=== PATIENT | male | born 1985 | race Caucasian/White ===

== ENCOUNTER 2016-12-20 11:45 | Emergency (ER) | payer OTHER ==
[2016-12-20 12:07] VITALS: BP 120/66; PULSE 57; RESP 15; TEMP 98
--- NOTE | 2016-12-20 12:16 | ED ---
ENT HPI - General Chief complaint: Dental/Oral Stated complaint: dental pain Time Seen by Provider: 12/20/16 12:09 Source: patient, RN notes reviewed Mode of arrival: ambulatory Limitations: no limitations - History of Present Illness Initial comments: 31-year-old male presents to the emergency department with a chief complaint of left-sided dental pain. Patient has a long history of dental issues. Patient does not regularly see the dentist. Patient states he's had pain and swelling to the left side of his mouth for the past few days. Patient denies any pain into the neck. Patient denies any difficulty opening closing her mouth. Patient denies any fever chills with this. Patient states she was concerned due to his continued pain so he thought that he should be evaluated.Patient denies any recent fever, chills, shortness of breath, chest pain, back pain, abdominal pain, nausea vomiting, numbness or tingling, dysuria or hematuria, constipation or diarrhea, headaches or visual changes, or any other current symptoms. - Related Data Previous Rx's Medication Instructions Recorded Ibuprofen [Motrin] 800 mg PO Q6HR PRN #20 tab 12/20/16 Penicillin V Potassium [Pen Vee K] 500 mg PO TID #40 tab 12/20/16 Allergies Allergy/AdvReac Type Severity Reaction Status Date / Time acetaminophen Allergy Swelling Verified 12/20/16 12:08 [From Tylenol-Codeine #3] codeine Allergy Swelling Verified 12/20/16 12:08 [From Tylenol-Codeine #3] Review of Systems ROS Statement: Those systems with pertinent positive or pertinent negative responses have been documented in the HPI. ROS Other: All systems not noted in ROS Statement are negative. Past Medical History Past Medical History: No Reported History History of Any Multi-Drug Resistant Organisms: None Reported Additional Past Surgical History / Comment(s): jaw Past Psychological History: No Psychological Hx Reported Smoking Status: Current every day smoker Past Alcohol Use History: None Reported Past Drug Use History: Marijuana General Exam Limitations: no limitations General appearance: alert, in no apparent distress Head exam: Present: atraumatic, normocephalic, normal inspection Eye exam: Present: normal appearance, PERRL, EOMI. Absent: scleral icterus, conjunctival injection, periorbital swelling Expanded Ear exam: Present: normal external inspection Mouth exam: Present: normal external inspection Teeth exam: Present: dental caries (Diffuse), dental tenderness # (Diffusely left side). Absent: gingival enlargement Throat exam: normal inspection, tonsillar erythema Neck exam: Present: normal inspection. Absent: tenderness, meningismus, lymphadenopathy Respiratory exam: Present: normal lung sounds bilaterally. Absent: respiratory distress, wheezes, rales, rhonchi, stridor Cardiovascular Exam: Present: regular rate, normal rhythm, normal heart sounds. Absent: systolic murmur, diastolic murmur, rubs, gallop, clicks Neurological exam: Present: alert, oriented X3 Psychiatric exam: Present: normal affect, normal mood Skin exam: Present: warm, dry, intact, normal color. Absent: rash Course Vital Signs 12/20/16 12:04 Temperature 98.0 F Pulse Rate 57 L Respiratory 15 Rate Blood Pressure 120/66 O2 Sat by Pulse 98 Oximetry Medical Decision Making - Medical Decision Making 31-year-old male presents to the emergency Department chief complaint of left- sided dental pain. At this time the patient will be started on antibiotics. We did give him information for follow-up with the dentist. We discussed return parameters all patient's questions. He stated he understood the plan. They will be discharged home. Disposition Clinical Impression: Dental caries Disposition: HOME SELF-CARE Condition: Stable Instructions: Dental Caries (ED) Additional Instructions: Please use medication as discussed. Please follow up with family doctor if symptoms have not improved over the next two days. Please return to the emergency room if your symptoms increase or worsen or for any other concerns. [facility] [id number] [place] [address] [phone] (existing clients only) For new clients: [phone] 1st consult: $50 (includes Xrays) Usually 30% less then private dentist for visits after. [employer] [facility] [employer] Have to pay $50 for Xrays anmd rest is covered. [phone] Prescriptions: Ibuprofen [Motrin] 800 mg PO Q6HR PRN #20 tab PRN Reason: Pain Penicillin V Potassium [Pen Vee K] 500 mg PO TID #40 tab Referrals: None,Stated [Primary Care Provider] - 1-2 days Alexey Kelly MD [STAFF PHYSICIAN] - 1-2 days Time of Disposition: 12:16
== END 2016-12-20 12:50 | disposition home or self-care (01) ==
LOC: EC 11:45
DX: K02.9 Dental caries, unspecified (principal); F17.200 Nicotine dependence, unspecified, uncomplicated; Z88.6 Allergy status to analgesic agent; Z88.5 Allergy status to narcotic agent
CPT/HCPCS: 99282

== ENCOUNTER 2019-10-31 14:27 | Emergency (ER) | payer OTHER ==
[2019-10-31 14:30] VITALS: BP 142/89; PULSE 74; RESP 16; TEMP 98.1
--- NOTE | 2019-10-31 15:10 | ED ---
General Adult HPI - General Chief complaint: Upper Respiratory Infection Stated complaint: nose congestion/fever Time Seen by Provider: 10/31/19 14:48 Source: patient, RN notes reviewed Mode of arrival: ambulatory Limitations: no limitations - History of Present Illness Initial comments: 34-year-old male presents to the emergency determine for a chief complaint of watery eyes. Patient states that for the past 5 days he has been sick. States he has had congestion and mild cough. Patient states that the cough resolved however he is still congested and now his eyes have been watery since yesterday. Patient denies visual changes or eye pain. Denies getting any foreign substance in his eyes. Denies any injury to the eyes. Patient denies purulent drainage or otherwise crusting shut. Patient denies fevers. Denies domestic or foreign travel. Patient has no other complaints at this time including shortness of breath, chest pain, abdominal pain, nausea or vomiting, headache, or visual changes. - Related Data Previous Rx's Medication Instructions Recorded Ibuprofen [Motrin] 800 mg PO Q6HR PRN #20 tab 12/20/16 Penicillin V Potassium [Pen Vee K] 500 mg PO TID #40 tab 12/20/16 Loratadine [Claritin] 10 mg PO DAILY #20 tab 10/31/19 Polymyxin B-Trimeth Sulf Ophth 1 drops BOTH EYES Q6H 7 Days #1 10/31/19 [Polytrim Opthalmic] bottle Allergies Allergy/AdvReac Type Severity Reaction Status Date / Time acetaminophen Allergy Swelling Verified 10/31/19 14:30 [From Tylenol-Codeine #3] codeine Allergy Swelling Verified 10/31/19 14:30 [From Tylenol-Codeine #3] Review of Systems ROS Statement: Those systems with pertinent positive or pertinent negative responses have been documented in the HPI. ROS Other: All systems not noted in ROS Statement are negative. Past Medical History Past Medical History: No Reported History History of Any Multi-Drug Resistant Organisms: None Reported Additional Past Surgical History / Comment(s): jaw Past Psychological History: No Psychological Hx Reported Smoking Status: Current every day smoker Past Alcohol Use History: None Reported Past Drug Use History: Marijuana General Exam Limitations: no limitations General appearance: alert, in no apparent distress Head exam: Present: atraumatic, normocephalic, normal inspection Eye exam: Present: normal appearance, PERRL, EOMI. Absent: scleral icterus, conjunctival injection (Non-erythematous, no purulent drainage. Patient does have watery serous drainage bilaterally), periorbital swelling ENT exam: Present: normal exam, normal oropharynx, mucous membranes moist, TM's normal bilaterally, normal external ear exam Neck exam: Present: normal inspection, full ROM. Absent: tenderness, meningismus, lymphadenopathy Respiratory exam: Present: normal lung sounds bilaterally. Absent: respiratory distress, wheezes, rales, rhonchi, stridor Cardiovascular Exam: Present: regular rate, normal rhythm, normal heart sounds. Absent: systolic murmur, diastolic murmur, rubs, gallop, clicks Course Vital Signs 10/31/19 14:28 Temperature 98.1 F Pulse Rate 74 Respiratory 16 Rate Blood Pressure 142/89 O2 Sat by Pulse 100 Oximetry Medical Decision Making - Medical Decision Making vital stable. Patient afebrile. Well-appearing, sitting up in exam bed. Nontoxic. Physical exam unremarkable although patient is noted to have congestion and minimal bilateral serous drainage from the eyes. He states cough is completely resolved. I did offer to do flu testing and chest x-ray however patient refuses. States he just wants something to help with his eyes. This is likely related to viral syndrome. However he did offer to get antibiotic drops and start patient on Claritin as there could be relation to ALLERGIES as well. Recommend he follow up with primary care return for any worsening symptoms. Disposition Clinical Impression: Conjunctivitis Disposition: HOME SELF-CARE Condition: Good Instructions (If sedation given, give patient instructions): Conjunctivitis (ED) Additional Instructions: Please use prescriptions as directed. Follow-up with primary care in 1-2 days. Return for any worsening symptoms. Prescriptions: Loratadine [Claritin] 10 mg PO DAILY #20 tab Polymyxin B-Trimeth Sulf Ophth [Polytrim Opthalmic] 1 drops BOTH EYES Q6H 7 Days #1 bottle Is patient prescribed a controlled substance at d/c from ED?: No Referrals: Shyla Gomez MD [REFERRING] - 1-2 days Time of Disposition: 15:08
== END 2019-10-31 15:21 | disposition home or self-care (01) ==
LOC: EC 14:27
DX: H10.9 Unspecified conjunctivitis (principal); F17.200 Nicotine dependence, unspecified, uncomplicated; Z88.5 Allergy status to narcotic agent; Z88.6 Allergy status to analgesic agent
CPT/HCPCS: 99283

== ENCOUNTER 2021-05-10 10:47 | Emergency (ER) | payer OTHER ==
[2021-05-10 11:07] VITALS: BP 118/74; PULSE 62; RESP 18; TEMP 97.9
--- NOTE | 2021-05-10 11:52 | ED ---
General Adult HPI - General Chief complaint: Dental/Oral Stated complaint: dental infection Time Seen by Provider: 05/10/21 11:13 Source: patient, RN notes reviewed Mode of arrival: ambulatory Limitations: no limitations - History of Present Illness Initial comments: Patient is a 36-year-old male presented to the emergency room today with chief complaint of dental abscess. Patient does admit that he's been on antibiotics clindamycin over the last 3 days his had no relief the symptoms. Patient states still having swelling to the right side of the upper gum. He does admit that he's had similar problems in the past on the opposite side. He is been trying follow-up the dentist has not seen one yet. Patient denies any drainage or discharge. Patient denies any other complaints or symptoms at this time. He does admit that in the past is been on penicillin and felt that it worked better for him. - Related Data Previous Rx's Medication Instructions Recorded Ibuprofen [Motrin] 800 mg PO Q6HR PRN #20 tab 12/20/16 Penicillin V Potassium [Pen Vee K] 500 mg PO TID #40 tab 12/20/16 Loratadine [Claritin] 10 mg PO DAILY #20 tab 10/31/19 Polymyxin B-Trimeth Sulf Ophth 1 drops BOTH EYES Q6H 7 Days #1 10/31/19 [Polytrim Opthalmic] bottle Amoxicillin/Potassium Clav 1 each PO Q12HR #20 tab 05/10/21 [Augmentin 875-125 Tablet] HYDROcodone/APAP 5-325MG [[place] 1 tab PO Q6HR PRN 3 Days #12 tab 05/10/21 5-325] Allergies Allergy/AdvReac Type Severity Reaction Status Date / Time acetaminophen Allergy Swelling Verified 05/10/21 11:07 [From Tylenol-Codeine #3] codeine Allergy Swelling Verified 05/10/21 11:07 [From Tylenol-Codeine #3] Review of Systems ROS Statement: Those systems with pertinent positive or pertinent negative responses have been documented in the HPI. ROS Other: All systems not noted in ROS Statement are negative. Past Medical History Past Medical History: No Reported History History of Any Multi-Drug Resistant Organisms: None Reported Additional Past Surgical History / Comment(s): jaw Past Psychological History: No Psychological Hx Reported Smoking Status: Current every day smoker Past Alcohol Use History: None Reported Past Drug Use History: Marijuana General Exam - General Exam Comments Initial Comments: General: The patient is awake and alert, in no distress, and does not appear acutely ill. Eye: extra-ocular movements are intact. There is normal conjunctiva bilaterally. No signs of icterus. Ears, nose, mouth and throat: There are moist mucous membranes and no oral lesions. Patient does have swelling to the right side of the mouth and the upper gumline on the right side. Tender in the gumline. There is no sign of an abscess to drain. The uvula midline. Swallows without difficulty. Neck: The neck is supple, there is no tenderness or JVD. Respiratory: respirations are non-labored, breath sounds are equal. Musculoskeletal: Normal ROM, no tenderness. Strength 5/5. Sensation intact. Neurological: A&O x 3. CN II-XII intact, There are no obvious motor or sensory deficits. Coordination appears grossly intact. Speech is normal. Skin: Skin is warm and dry and no rashes or lesions are noted. Psychiatric: Cooperative, appropriate mood & affect, normal judgment. Limitations: no limitations Course Vital Signs 05/10/21 11:04 Temperature 97.9 F Pulse Rate 62 Respiratory 18 Rate Blood Pressure 118/74 O2 Sat by Pulse 97 Oximetry Medical Decision Making - Medical Decision Making Patient has history of dental abscess. He does admit that he's been treated wit h penicillin past had better results. Is given clindamycin for a few days with no relief the symptoms. Patient will be given a short prescription of pain medication and also a prescription for Augmentin. He is advised to follow dentist over the next 2 days return if any symptoms increase worsen. He states understanding and is agreement. Disposition Clinical Impression: Dental abscess Disposition: HOME SELF-CARE Condition: Good Instructions (If sedation given, give patient instructions): Dental Abscess (ED) Additional Instructions: Please follow the dentist as discussed. Use antibiotic as prescribed and discontinue previously prescribed clindamycin. Return for any other concerns. Prescriptions: Amoxicillin/Potassium Clav [Augmentin 875-125 Tablet] 1 each PO Q12HR #20 tab HYDROcodone/APAP 5-325MG [[place] 5-325] 1 tab PO Q6HR PRN 3 Days #12 tab PRN Reason: Pain Is patient prescribed a controlled substance at d/c from ED?: Yes If prescribed controlled substance>3 days was MAPS reviewed?: Prescribed <3 Days Referrals: None,Stated [Primary Care Provider] - 1-2 days Time of Disposition: 11:50
== END 2021-05-10 11:58 | disposition home or self-care (01) ==
LOC: EC 10:47
DX: K04.7 Periapical abscess without sinus (principal); F17.200 Nicotine dependence, unspecified, uncomplicated; F12.90 Cannabis use, unspecified, uncomplicated; Z79.1 Long term (current) use of non-steroidal anti-inflammatories (NSAID); Z79.899 Other long term (current) drug therapy
CPT/HCPCS: 99282

== ENCOUNTER 2024-01-01 20:37 | Emergency (ER) | payer OTHER ==
--- NOTE | 2024-01-01 21:27 | ED ---
Abdominal Pain HPI - General Source: patient, RN notes reviewed Mode of arrival: ambulatory Limitations: no limitations <Tao Contreras - Last Filed: 01/01/24 21:27> <Karin Cooper - Last Filed: 01/02/24 00:31> - General Chief Complaint: Abdominal Pain Stated Complaint: Abd Pain,Headache Time Seen by Provider: 01/01/24 21:20 - History of Present Illness Initial Comments: 38-year-old male presenting to the ED with complaints of headache and abdominal pain onset 3 days ago. Associated chills and subjective fever. Denies changes in bowel or bladder habits. (Tao Contreras) 38-year-old male with no significant past medical history presenting to the ED with complaint of lower left quadrant abdominal pain x 3 days. States the pain is intermittent and sharp. The pain does not radiate. He has not had this pain before. States pain is mildly relieved with applied pressure. He is able to tolerate orals. He admits subjective fevers at home. He has had 1 episode of vomiting here in the ER. Last bowel movement was 1 or 2 days ago and was normal. Denies diarrhea, constipation, cough, URI symptoms, dysuria, urinary frequency, urinary urgency, testicular pain or swelling. States he had issues with his liver many years ago and has not drink alcohol in many years. He is a current tobacco and marijuana smoker. Also admits a left-sided headache yesterday but denies current pain. Denies head trauma or vision changes. (Karin Cooper) - Related Data Previous Rx's Medication Instructions Recorded Ibuprofen [Motrin] 800 mg PO Q6HR PRN #20 tab 12/20/16 Penicillin V Potassium [Pen Vee K] 500 mg PO TID #40 tab 12/20/16 Loratadine [Claritin] 10 mg PO DAILY #20 tab 10/31/19 Polymyxin B-Trimeth Sulf Ophth 1 drops BOTH EYES Q6H 7 Days #1 10/31/19 [Polytrim Opthalmic] bottle Amoxicillin/Potassium Clav 1 each PO Q12HR #20 tab 05/10/21 [Augmentin 875-125 Tablet] HYDROcodone/APAP 5-325MG [[place] 1 tab PO Q6HR PRN 3 Days #12 tab 05/10/21 5-325] Ibuprofen [Motrin] 600 mg PO Q8HR PRN #20 tab 01/02/24 Allergies Allergy/AdvReac Type Severity Reaction Status Date / Time acetaminophen Allergy Swelling Verified 01/01/24 21:15 [From Tylenol-Codeine #3] codeine Allergy Swelling Verified 01/01/24 21:15 [From Tylenol-Codeine #3] Review of Systems ROS Other: All systems not noted in ROS Statement are negative. <Prashanth Contrerasua - Last Filed: 01/01/24 21:27> ROS Other: All systems not noted in ROS Statement are negative. <Karin Cooper - Last Filed: 01/02/24 00:31> ROS Statement: Those systems with pertinent positive or pertinent negative responses have been documented in the HPI. Past Medical History Past Medical History: No Reported History History of Any Multi-Drug Resistant Organisms: None Reported Past Surgical History: Orthopedic Surgery Additional Past Surgical History / Comment(s): jaw with a mteal plate. Arthroscopy right hip as a child (pt states he thinks right hip) Past Psychological History: No Psychological Hx Reported Smoking Status: Current every day smoker Past Alcohol Use History: None Reported Past Drug Use History: Marijuana <DianeTao - Last Filed: 01/01/24 21:27> General Exam Limitations: no limitations <MelaniecarterjayleenTao - Last Filed: 01/01/24 21:27> General appearance: alert, in no apparent distress Head exam: Present: atraumatic, normocephalic, normal inspection, other (Minimal tenderness to palpation or erythema.) Eye exam: Present: normal appearance, PERRL, EOMI. Absent: scleral icterus, conjunctival injection, periorbital swelling Neck exam: Present: normal inspection. Absent: tenderness, meningismus, lymphadenopathy Respiratory exam: Present: normal lung sounds bilaterally. Absent: respiratory distress, wheezes, rales, rhonchi, stridor Cardiovascular Exam: Present: regular rate, normal rhythm, normal heart sounds. Absent: systolic murmur, diastolic murmur, rubs, gallop, clicks GI/Abdominal exam: Present: soft, normal bowel sounds. Absent: distended, tenderness, guarding, rebound, rigid, pulsatile mass, hernia Extremities exam: Present: normal inspection, full ROM, normal capillary refill. Absent: tenderness, pedal edema, joint swelling, calf tenderness Back exam: Present: normal inspection. Absent: CVA tenderness (R), CVA tenderness (L) Neurological exam: Present: alert, oriented X3, CN II-XII intact Psychiatric exam: Present: normal affect, normal mood Skin exam: Present: warm, dry, intact, normal color. Absent: rash <Karin Cooper - Last Filed: 01/02/24 00:31> - General Exam Comments Initial Comments: Visual Physical Exam Vital signs reviewed General: Well-appearing, nontoxic, no acute distress. Head: Normocephalic, atraumatic Eyes: PERRLA, EOMI ENT: Airway patent Chest: Nonlabored breathing Skin: No visual rash, normal skin tone Neuro: Alert and oriented 3 Musculoskeletal: No gross abnormalities (Tao Contreras) Course Vital Signs 01/01/24 21:15 Temperature 98.3 F Pulse Rate 62 Respiratory 14 Rate Blood Pressure 114/70 O2 Sat by Pulse 99 Oximetry Medical Decision Making <Tao Contreras - Last Filed: 01/01/24 21:27> - Lab Data Result diagrams: 01/01/24 21:36 01/01/24 21:36 <Karin Cooper - Last Filed: 01/02/24 00:31> - Medical Decision Making Quicknote portion performed. Signed Tao Contreras PA-C (Tao Contreras) Was pt. sent in by a medical professional or institution ([facility] [place], HEAT SEAL OPERATOR, urgent care, hospital, or long term...) When possible be specific @ -No Did you speak to anyone other than the patient for history (EMS, parent, family, police, friend...)? What history was obtained from this source @ -No Did you review nursing and triage notes (agree or disagree)? Why? @ -I reviewed and agree with nursing and triage notes Were old charts reviewed (outside hosp., previous admission, EMS record, old EKG, old radiological studies, urgent care reports/EKG's, long term records)? Report findings @ -No old charts were reviewed Differential Diagnosis (chest pain, altered mental status, abdominal pain women, abdominal pain men, vaginal bleeding, weakness, fever, dyspnea, syncope, headache, dizziness, GI bleed, back pain, seizure, CVA, palpatations, mental health, musculoskeletal)? @ -Differential Abdominal Pain Men: Appendicitis, cholecystitis, diverticulosis, ischemic bowel, pancreatitis, hepatitis, UTI, gastroenteritis, AAA, incarcerated hernia, bowel obstruction, constipation, inflammatory bowel, hepatitis, peptic ulcer disease, splenic infarction, perforated viscus, testicular torsion, this is not meant to be an all-inclusive list EKG interpreted by me (3pts min.). @ -None X-rays interpreted by me (1pt min.). @ -X-ray reveals no acute process CT interpreted by me (1pt min.). @ -None done U/S interpreted by me (1pt. min.). @ -None done What testing was considered but not performed or refused? (CT, X-rays, U/S, labs)? Why? @ -CTA considered but not performed due to no abdominal tenderness on e xamination and lab work unremarkable. Urine negative for blood. Low suspicion for diverticulitis and nephrolithiasis at this time. What meds were considered but not given or refused? Why? @ -None Did you discuss the management of the patient with other professionals (professionals i.e. , PA, HEAT SEAL OPERATOR, lab, RT, psych nurse, social work case manager, bleach maker, teacher, forest officer, dependency case manager)? Give summary @ -No Was smoking cessation discussed for >3mins.? @ -No Was critical care preformed (if so, how long)? @ -No Were there social determinants of health that impacted care today? How? (Homelessness, low income, unemployed, alcoholism, drug addiction, transportation, low edu. Level, literacy, decrease access to med. care, detention, rehab)? @ -No Was there de-escalation of care discussed even if they declined (Discuss DNR or withdrawal of care, Hospice)? DNR status @ -No What co-morbidities impacted this encounter? (DM, HTN, Smoking, COPD, CAD, Cancer, CVA, ARF, Chemo, Hep., AIDS, mental health diagnosis, sleep apnea, morbid obesity)? @ -None Was patient admitted / discharged? Hospital course, mention meds given and route, prescriptions, significant lab abnormalities, going to OR and other pertinent info. @ -Pt was discharged. Patient was seen and evaluated for lower left quadrant abdominal pain x 3 days. There are no red flag symptoms present. No urinary symptoms present or change in bowel habits. Vitals are stable and there is no abdominal tenderness to palpation. KUB revealed no acute process. Lab work unremarkable. Urine negative for blood or WBC. Flu, COVID, and RSV negative. Discussed diagnosis of viral gastroenteritis with patient. Supportive care discussed. Strict return/alarm symptoms discussed with patient and patient shows understanding and agrees. Discharged in stable condition. Case discussed with Dr. Lassiter. Undiagnosed new problem with uncertain prognosis? @ -No Drug Therapy requiring intensive monitoring for toxicity (Heparin, Nitro, Insulin, Cardizem)? @ -No Were any procedures done? @ -No Diagnosis/symptom? @ -Viral gastroenteritis Acute, or Chronic, or Acute on Chronic? @ -Acute Uncomplicated (without systemic symptoms) or Complicated (systemic symptoms)? @ -Uncomplicated Side effects of treatment? @ -No Exacerbation, Progression, or Severe Exacerbation? @ -No Poses a threat to life or bodily function? How? (Chest pain, [place], [place], pneumonia, PE, COPD, DKA, ARF, appy, cholecystitis, CVA, Diverticulitis, Homicidal, Suicidal, threat to staff... and all critical care pts) @ -No (Karin Cooper) - Lab Data Lab Results 01/01/24 01/01/24 01/01/24 Range/Units 21:36 21:36 22:05 WBC 10.8 H (3.8-10.6) k/uL RBC 4.69 (4.30-5.90) m/uL Hgb 16.1 (13.0-17.5) gm/dL Hct 46.3 (39.0-53.0) % MCV 98.6 (80.0-100.0) fL MCH 34.4 (25.0-35.0) pg MCHC 34.9 (31.0-37.0) g/dL RDW 12.2 (11.5-15.5) % Plt Count 294 (150-450) k/uL MPV 7.6 Neutrophils % 78 % Lymphocytes % 17 % Monocytes % 3 % Eosinophils % 1 % Basophils % 0 % Neutrophils # 8.5 H (1.3-7.7) k/uL Lymphocytes # 1.8 (1.0-4.8) k/uL Monocytes # 0.4 (0-1.0) k/uL Eosinophils # 0.1 (0-0.7) k/uL Basophils # 0.0 (0-0.2) k/uL Sodium 137 (137-145) mmol/L Potassium 4.0 (3.5-5.1) mmol/L Chloride 103 (98-107) mmol/L Carbon Dioxide 27 (22-30) mmol/L Anion Gap 7 mmol/L BUN 17 (9-20) mg/dL Creatinine 0.88 (0.66-1.25) mg/dL Est GFR (CKD-EPI)AfAm >90 (>60 ml/min/1.73 sqM) Est GFR (CKD-EPI)NonAf >90 (>60 ml/min/1.73 sqM) Glucose 92 (74-99) mg/dL Plasma Lactic Acid Yuriy (0.7-2.0) mmol/L Calcium 9.5 (8.4-10.2) mg/dL Total Bilirubin 2.9 H (0.2-1.3) mg/dL AST 36 (17-59) U/L ALT 47 (4-49) U/L Alkaline Phosphatase 71 (38-126) U/L Total Protein 7.4 (6.3-8.2) g/dL Albumin 4.8 (3.5-5.0) g/dL Amylase 60 (30-110) U/L Lipase 51 (23-300) U/L Urine Color Urine Appearance (Clear) Urine pH (5.0-8.0) Ur Specific [place] (1.001-1.035) Urine Protein (Negative) Urine Glucose (UA) (Negative) Urine Ketones (Negative) Urine Blood (Negative) Urine Nitrite (Negative) Urine Bilirubin (Negative) Urine Urobilinogen (<2.0) mg/dL Ur Leukocyte Esterase (Negative) Urine RBC (0-5) /hpf Urine WBC (0-5) /hpf Ur Squamous Epith Cells (0-4) /hpf Amorphous Sediment (None) /hpf Urine Bacteria (None) /hpf Hyaline Casts (0-2) /lpf Urine Mucus (None) /hpf Influenza Type A (PCR) Not Detected (Not Detectd) Influenza Type B (PCR) Not Detected (Not Detectd) RSV (PCR) Not Detected (Not Detectd) SARS-CoV-2 (PCR) Not Detected (Not Detectd) 05/14/24 05/14/24 Range/Units 22:45 23:07 WBC (3.8-10.6) k/uL RBC (4.30-5.90) m/uL Hgb (13.0-17.5) gm/dL Hct (39.0-53.0) % MCV (80.0-100.0) fL MCH (25.0-35.0) pg MCHC (31.0-37.0) g/dL RDW (11.5-15.5) % Plt Count (150-450) k/uL MPV Neutrophils % % Lymphocytes % % Monocytes % % Eosinophils % % Basophils % % Neutrophils # (1.3-7.7) k/uL Lymphocytes # (1.0-4.8) k/uL Monocytes # (0-1.0) k/uL Eosinophils # (0-0.7) k/uL Basophils # (0-0.2) k/uL Sodium (137-145) mmol/L Potassium (3.5-5.1) mmol/L Chloride (98-107) mmol/L Carbon Dioxide (22-30) mmol/L Anion Gap mmol/L BUN (9-20) mg/dL Creatinine (0.66-1.25) mg/dL Est GFR (CKD-EPI)AfAm (>60 ml/min/1.73 sqM) Est GFR (CKD-EPI)NonAf (>60 ml/min/1.73 sqM) Glucose (74-99) mg/dL Plasma Lactic Acid Yuriy 1.0 (0.7-2.0) mmol/L Calcium (8.4-10.2) mg/dL Total Bilirubin (0.2-1.3) mg/dL AST (17-59) U/L ALT (4-49) U/L Alkaline Phosphatase (38-126) U/L Total Protein (6.3-8.2) g/dL Albumin (3.5-5.0) g/dL Amylase (30-110) U/L Lipase (23-300) U/L Urine Color Yellow Urine Appearance Clear (Clear) Urine pH 6.0 (5.0-8.0) Ur Specific [place] 1.033 (1.001-1.035) Urine Protein 1+ H (Negative) Urine Glucose (UA) Negative (Negative) Urine Ketones 1+ H (Negative) Urine Blood Negative (Negative) Urine Nitrite Negative (Negative) Urine Bilirubin Negative (Negative) Urine Urobilinogen 2.0 (<2.0) mg/dL Ur Leukocyte Esterase Negative (Negative) Urine RBC 3 (0-5) /hpf Urine WBC 3 (0-5) /hpf Ur Squamous Epith Cells <1 (0-4) /hpf Amorphous Sediment Occasional H (None) /hpf Urine Bacteria Rare H (None) /hpf Hyaline Casts 17 H (0-2) /lpf Urine Mucus Many H (None) /hpf Influenza Type A (PCR) (Not Detectd) Influenza Type B (PCR) (Not Detectd) RSV (PCR) (Not Detectd) SARS-CoV-2 (PCR) (Not Detectd) Disposition <Tao Contreras - Last Filed: 01/01/24 21:27> Is patient prescribed a controlled substance at d/c from ED?: No Time of Disposition: 00:29 <Karin Cooper - Last Filed: 01/02/24 00:31> Clinical Impression: Viral gastroenteritis Disposition: HOME SELF-CARE Condition: Stable Instructions (If sedation given, give patient instructions): Gastroenteritis (ED) Additional Instructions: Please return to the Emergency Department if symptoms worsen or any other concerns. Prescriptions: Ibuprofen [Motrin] 600 mg PO Q8HR PRN #20 tab PRN Reason: Pain Referrals: None,Stated [Primary Care Provider] - 1-2 days
[2024-01-01 21:57] VITALS: TEMP 98.3
[2024-01-01 22:02] LABS: ALT 47 U/L (4-49); AST 36 U/L (17-59); African American GFR (CKD) >90 (>60 ml/min/1.73 sqM); Albumin 4.8 g/dL (3.5-5.0); Alkaline Phosphatase 71 U/L (38-126); Amylase 60 U/L (30-110); Anion Gap 7 mmol/L; Blood Urea Nitrogen 17 mg/dL (9-20); Calcium 9.5 mg/dL (8.4-10.2); Carbon Dioxide 27 mmol/L (22-30); Chloride 103 mmol/L (98-107); Glucose 92 mg/dL (74-99); Lipase 51 U/L (23-300); Non-African American GFR(CKD) >90 (>60 ml/min/1.73 sqM); Sodium 137 mmol/L (137-145); Total Bilirubin 2.9 mg/dL (0.2-1.3); Total Protein 7.4 g/dL (6.3-8.2)
[2024-01-01 22:12] LABS: Basophils % (A) 0 %; Eosinophils # (A) 0.1 k/uL (0-0.7); Eosinophils % (A) 1 %; HCT 46.3 % (39.0-53.0); HGB 16.1 gm/dL (13.0-17.5); Lymphocytes # (A) 1.8 k/uL (1.0-4.8); Lymphocytes % (A) 17 %; MCH 34.4 pg (25.0-35.0); MCHC 34.9 g/dL (31.0-37.0); MCV 98.6 fL (80.0-100.0); Mean Platelet Volume 7.6; Monocytes # (A) 0.4 k/uL (0-1.0); Monocytes % (A) 3 %; Neutrophils # (A) 8.5 k/uL (1.3-7.7); Neutrophils % (A) 78 %; Platelet Count 294 k/uL (150-450); RBC 4.69 m/uL (4.30-5.90); RDW 12.2 % (11.5-15.5); WBC 10.8 k/uL (3.8-10.6)
[2024-01-01] MEDS: KETOROLAC 15 MG/ML 1 ML VIAL IVP STA (22:44)
--- NOTE | 2024-01-01 23:11 | XR ---
EXAM: XR Abdomen, 1 View CLINICAL HISTORY: ITS.REASON XR Reason: abd pain TECHNIQUE: Frontal supine view of the abdomen/pelvis. COMPARISON: No relevant prior studies available. FINDINGS: Gastrointestinal tract: Unremarkable. No dilation. Bones/joints: Unremarkable. No acute fracture. IMPRESSION: Normal abdominal x-ray.
[2024-01-01 23:38] LABS: Amorphous Sediment,Urine Occasional /hpf; Appearance,Urine Clear (Clear); Bacteria,Urine Rare /hpf; Bilirubin,Urine Negative (Negative); Blood,Urine Negative (Negative); Color,Urine Yellow; Glucose,Urine (UA) Negative (Negative); Hyaline Casts,Urine 17 /lpf (0-2); Ketones,Urine 1+ (Negative); Leukocyte Esterase,Urine Negative (Negative); Mucus,Urine Many /hpf; Nitrite,Urine Negative (Negative); Protein,Urine 1+ (Negative); RBC,Urine 3 /hpf (0-5); Specific Gravity,Urine 1.033 (1.001-1.035); Squamous Epithelial Cell,Urine <1 /hpf (0-4); WBC,Urine 3 /hpf (0-5)
[2024-01-02 01:28] VITALS: BP 110/60; PULSE 71; RESP 18
== END 2024-01-02 00:41 | disposition home or self-care (01) ==
LOC: EC 20:37
DX: A08.4 Viral intestinal infection, unspecified (principal); F17.200 Nicotine dependence, unspecified, uncomplicated; Z11.52 Encounter for screening for COVID-19; F12.90 Cannabis use, unspecified, uncomplicated; Z88.5 Allergy status to narcotic agent; Z88.6 Allergy status to analgesic agent
CPT/HCPCS: 36415; 80053; 82150; 83605; 83690; 85025; 81001; 87636; 74018; 99284; 96374; J1885